=== PATIENT | male | born 1970 | race Caucasian/White ===

== ENCOUNTER 2018-12-02 08:38 | Day surgery (SDC) | payer OTHER ==
[2018-12-01 16:28] VITALS: BMI 19.8
[2018-12-02 10:35] VITALS: TEMP 97.5
[2018-12-02 11:48] VITALS: BP 111/63; PULSE 40
--- NOTE | 2018-12-03 13:04 | PATH ---
Surgical Pathology Report Patient Name: [facility]. Rec. #: [id number] /Age/Gender: 1970 (Age: 48) / M Account: [id number] Location: [facility]-ENDOSCOPY Taken: 12/02/2018 Received: 12/02/2018 Reported: 12/03/2018 Physicians: Haydee Cash M.D. Specimen(s) Received A: PROXIMAL ASCENDING COLON POLYPS B: PROXIMAL TRANSVERSE COLON POLYP C: DISTAL TRANSVERSE COLON POLYP Clinical History Screening, family history of colon cancer Postoperative diagnosis: Colon polyps, ascending and transverse polyp Final Diagnosis A. PROXIMAL ASCENDING COLON, POLYPS, BIOPSY: TUBULAR ADENOMA. HYPERPLASTIC POLYP(S). B. PROXIMAL TRANSVERSE COLON, POLYP, BIOPSY: HYPERPLASTIC POLYP. C. DISTAL TRANSVERSE COLON, POLYP, BIOPSY: POLYPOID COLONIC MUCOSA WITH PROMINENT LYMPHOID AGGREGATE. Electronically Signed Noy Can M.D. Gross Description A. Received in formalin, labeled "proximal ascending colon polyps" are 6 castellanos, irregular portions of soft tissue ranging from 0.1-0.4 cm. in greatest dimension. The specimens are submitted in toto in one cassette. B. Received in formalin, labeled "proximal transverse colon polyp" are 3 castellanos, irregular portions of soft tissue ranging from 0.1-0.2 cm. in greatest dimension. The specimens are submitted in toto in one cassette. C. Received in formalin, labeled "biopsy distal transverse colon polyp" are 4 castellanos, irregular portions of soft tissue ranging from 0.3-0.5 cm. in greatest dimension. The specimens are submitted in toto in one cassette. DL/12/02/2018 saudi12/02/2018
== END 2018-12-02 11:45 | disposition home or self-care (01) ==
LOC: JASU-ENDO 08:38
PROVIDERS: ATTEND Internal Medicine Gastroenterology
PROC: 0DBL8ZX Excision of Transverse Colon, Via Natural or Artificial Opening Endoscopic, Diagnostic (ICD-10-PCS; 2018-12-02)
PROC: 0DBK8ZX Excision of Ascending Colon, Via Natural or Artificial Opening Endoscopic, Diagnostic (ICD-10-PCS; principal; 2018-12-02 09:30)
DX: Z12.11 Encounter for screening for malignant neoplasm of colon (principal); Z83.71 Family history of colonic polyps; D12.2 Benign neoplasm of ascending colon; D12.3 Benign neoplasm of transverse colon; K64.8 Other hemorrhoids
CPT/HCPCS: 88305-TC

== ENCOUNTER 2018-12-04 10:17 | Day surgery (SDC) | payer OTHER ==
[2018-12-04 10:39] VITALS: BMI 19.8
[2018-12-04 12:33] VITALS: TEMP 96
[2018-12-04 13:03] VITALS: BP 109/73; PULSE 49
--- NOTE | 2018-12-07 18:05 | PATH ---
Surgical Pathology Report Patient Name: HILARIO EMMANUEL [facility]. Rec. #: [id number] /Age/Gender: 1970 (Age: 48) / M Account: [id number] Location: [facility]-ENDOSCOPY Taken: 12/04/2018 Received: 12/04/2018 Reported: 12/07/2018 Physicians: Haydee Cash M.D. Specimen(s) Received A: BX SECOND PORTION DUODENUM AND DUODENAL BULB B: BX ANTRUM Clinical History Screening, family history of gastric cancer Postoperative diagnosis: Antral gastritis Final Diagnosis A. SECOND PORTION DUODENUM AND DUODENAL BULB, BIOPSY: DUODENUM MUCOSA WITH NO DIAGNOSTIC ABNORMALITIES. NO HISTOLOGIC EVIDENCE OF CELIAC DISEASE. B. ANTRUM, BIOPSY: GASTRIC MUCOSA WITH A REACTIVE GASTROPATHY. IMMUNOSTAIN FOR H. PYLORI IS NEGATIVE. NEGATIVE FOR INTESTINAL METAPLASIA Electronically Signed Al Barrera M.D. Gross Description A. Received in formalin, labeled "biopsy second portion of duodenum and duodenal bulb" are 3 castellanos, irregular portions of soft tissue ranging from 0.3-0.7 cm. in greatest dimension. The specimens are submitted in toto in one cassette. B. Received in formalin, labeled "biopsy antrum" are 4 castellanos, irregular portions of soft tissue ranging from 0.2-0.5 cm. in greatest dimension. The specimens are submitted in toto in one cassette. /12/04/201812/04/2018
== END 2018-12-04 13:20 | disposition home or self-care (01) ==
LOC: JASU-ENDO 10:17
PROVIDERS: ATTEND Internal Medicine Gastroenterology
PROC: 0DB68ZX Excision of Stomach, Via Natural or Artificial Opening Endoscopic, Diagnostic (ICD-10-PCS; 2018-12-04)
PROC: 0DB98ZX Excision of Duodenum, Via Natural or Artificial Opening Endoscopic, Diagnostic (ICD-10-PCS; principal; 2018-12-04 11:15)
DX: Z12.0 Encounter for screening for malignant neoplasm of stomach (principal); Z80.0 Family history of malignant neoplasm of digestive organs; K25.9 Gastric ulcer, unspecified as acute or chronic, without hemorrhage or perforation
CPT/HCPCS: 88305-TC; 88342-TC